=== PATIENT | female | born 1960 | race African-American/Black ===

== ENCOUNTER 2016-12-14 06:30 | Emergency (ER) | payer OTHER ==
[~2016-12-14] VITALS: Ht 162.6 cm; Wt 122.5 kg
[2016-12-14] MEDS: IBUPROFEN 600 MG TABLET PO ONE (06:46)
[2016-12-14 08:11] VITALS: BP 130/92
== END 2016-12-14 08:14 | disposition home or self-care (01) ==
LOC: EEVIPCON 06:32 → EMS 06:32
DX: S80.02XA Contusion of left knee, initial encounter (principal); W19.XXXA Unspecified fall, initial encounter; Y93.89 Activity, other specified; Y92.89 Other specified places as the place of occurrence of the external cause; Y99.0 Civilian activity done for income or pay
CPT/HCPCS: 99284